=== PATIENT | male | born 1925 | race Caucasian/White ===

== ENCOUNTER 2016-11-01 17:39 | Inpatient (IN) ==
[2016-11-01 18:30] LABS: Mean Cell Volume 89.7 fL (80.0-100.0); Mean Corpuscular HGB Conc 33.9 g/dL (31.0-36.0); Mean Corpuscular Hemoglobin 30.4 pg (26.0-34.0); Platelet Count 212 K/mcL (140-440); RBC 4.67 M/mcL (4.50-5.90); Red Cell Distribution Width 14.7 % (11.5-14.5)
[2016-11-01 18:50] LABS: ALT/SGPT 10 U/l (0-40); Albumin/Globulin Ratio 1.3 (1.0-2.3); Alkaline Phosphatase 47 U/L (39-117); Blood Urea Nitrogen 22 mg/dl (8-23)
[2016-11-01] MEDS ORDERED: ACETAMINOPHEN 650 MG SUPP.RECT PR ONE (19:03)
[2016-11-01 19:27] LABS: Appearance,Urine TURBID; Bacteria,Urine 0 /hpf (0); Bilirubin,Urine NEG (NEG); Color,Urine YELLOW; Glucose,Urine (UA) NEGATIVE (NEG); Leukocyte Esterase,Urine 250 /uL (NEG); Mucus,Urine MOD /hpf (0); Nitrate,Urine POS (NEG); Protein,Urine 100 mg/dL (NEG); Urine Blood >=1.0 mg/dL (<0.03); Urine Hyaline Cast 10 /lpf (0-2); Urine RBC 68 /hpf (0-1); Urine Squamous Epithelial Cell 0 /hpf (0-4); Urine WBC > 182 /hpf (0-4); Urobilinogen,Urine NEG (NEG)
[2016-11-01 19:39] LABS: Band Neutrophils % 5 % (0-10); Lymphocytes % 2 % (15-49); Monocytes % (Manual) 7 % (1-12); Platelet Estimate NORMAL (NORMAL); RBC Morphology NORMAL (NORMAL); Segmented Neutrophils % 86 % (38-78)
[2016-11-01] MEDS ORDERED: CEFEPIME 2 GM in DEXTROSE 5% IN WATER 50 ML IV ONE (19:41)
[2016-11-01] MEDS ORDERED: ACETAMINOPHEN 325 MG TABLET PO ONE (19:49)
--- NOTE | 2016-11-01 20:57 | Emergency Department Note ---
Fever HPI - General Chief Complaint: Fall Stated Complaint: Controlled fall, back pain Time Seen by Provider: 11/01/16 18:03 Source: patient, EMS Mode of arrival: ambulatory - History of Present Illness HPI Narrative: This 89-year-old gentleman was brought by emergency services. Reportedly he had been weak for days and slid to the floor and his significant other who is 93 years old was unable to help him get up. He has a history that includes previous urosepsis certainly years ago. He was seen about a week ago for back pain in this emergency room. - Related Data Home Medications Medication Instructions Recorded Confirmed aspirin 81 mg tablet,delayed 81 mg PO QDAY tab 09/08/15 11/01/16 release PERMANENT DISABLED PARKING PLACARD 1 each .ROUTE DAILY 10/24/16 11/01/16 Previous Rx's Medication Instructions Recorded methenamine mandelate 1 gram tablet 1 g PO QID #60 tab 01/02/16 furosemide 40 mg tablet 40 mg PO QDAY #30 tab 04/14/16 potassium chloride ER 10 mEq 10 meq PO QDAY #30 cap 04/14/16 capsule,extended release Allergies Allergy/AdvReac Type Severity Reaction Status Date / Time finasteride [From Proscar] Allergy Unknown Itching Verified 11/01/16 17:44 pravastatin Allergy Unknown Unknown Verified 11/01/16 17:44 shellfish derived Allergy Unknown Unknown Verified 11/01/16 17:44 tamsulosin [From Flomax] Allergy Unknown Itching Verified 11/01/16 17:44 Review of Systems Review of Systems: No nausea or vomiting. He has had some abdominal pain. No problems with his Cortés catheter. No cough phlegm wheezing or shortness of breath. No chest pains or palpitation. No headaches or passing out. He has been weak enough that his significant other as felt that she is unable to help care for him and that he needs placement. Fever PMH - Past Medical History Medical history: Reports: arthritis, CHF, GERD, hyperlipidemia, valvular heart disease, other (no DM; BPH; chronic cortés catheter.). Denies: coronary artery disease, CVA, hypertension Surgical history ED: Reports: heart valve replacement, herniorrhaphy, knee replacement (x2), other (rotator cuff repair Right; back X2) - Social History smoking status: Never smoker Alcohol use: Reports: None Drug use: Reports: none Physical Exam - General General appearance: other (initially somewhat lethargic, poorly responsive or at least slow; after temp decreased was much more active and alert and interactive and making jokes.) - Head Head exam: atraumatic, normocephalic - Eye Eye exam: Present: normal appearance - Neck Neck exam: Present: trachea midline. Absent: tenderness - Respiratory Respiratory exam: Present: normal lung sounds bilaterally. Absent: respiratory distress, wheezes, stridor - Cardiovascular Cardiovascular exam: Present: regular rate, other (gallop or S3 (LBBB)) - Abdominal Exam Abdominal exam: Present: soft, tenderness (moderately tender, worse RLQ). Absent: rebound, rigidity - Extremities Exam Extremities exam: Present: normal capillary refill - Neurological Exam Neurological exam: Present: alert, oriented X3 - Psychiatric Psychiatric exam: Present: normal affect (after temperature came down.) Course Vital Signs Temperature 102.6 F H 11/01/16 17:40 Pulse Rate 102 H 11/01/16 17:40 Respiratory Rate 16 11/01/16 17:40 Blood Pressure 132/70 11/01/16 17:40 Pulse Oximetry (%) 93 11/01/16 17:40 Temperature 102.6 F H 11/01/16 20:22 Pulse Rate 109 H 11/01/16 18:00 Respiratory Rate 29 H 11/01/16 19:01 Blood Pressure 130/73 11/01/16 19:01 Pulse Oximetry (%) 93 11/01/16 18:00 Fever - Lab Data Result diagrams: 11/01/16 15:47 11/01/16 15:47 Lab Results 11/01/16 11/01/16 11/01/16 Range/Units 15:47 15:47 15:47 WBC 15.0 H (4.5-11.0) K/mcL RBC 4.67 (4.50-5.90) M/mcL Hgb 14.2 (13.5-16.5) g/dL Hct 41.9 (41.0-55.0) % MCV 89.7 (80.0-100.0) fL MCH 30.4 (26.0-34.0) pg MCHC 33.9 (31.0-36.0) g/dL RDW 14.7 H (11.5-14.5) % Plt Count 212 (140-440) K/mcL MPV 7.9 (7.4-10.4) fL Total Counted 100 Seg Neutrophils % 86 H (38-78) % Band Neutrophils % 5 (0-10) % Lymphocytes % 2 L (15-49) % Monocytes % (Manual) 7 (1-12) % Platelet Estimate Normal (NORMAL) RBC Morphology Normal (NORMAL) VBG Lactic Acid 1.7 (0.5-2.2) mmol/L Sodium 137 (133-145) mmol/L Potassium 4.0 (3.3-5.1) mmol/L Chloride 96 (96-108) mmol/L Carbon Dioxide 26 (22-30) mmol/L Anion Gap 15.0 (8-16) BUN 22 (8-23) mg/dl Creatinine 1.0 (0.7-1.2) mg/dl GFR Calculation 66 Glucose 168 H (70-105) mg/dL Calcium 9.1 (8.6-10.4) mg/dl Total Bilirubin 0.8 (0.0-1.0) mg/dL AST 16 (0-37) U/l ALT 10 (0-40) U/l Alkaline Phosphatase 47 (39-117) U/L Total Protein 7.1 (5.9-8.4) gm/dL Albumin 4.0 (3.2-5.2) gm/dL Globulin 3.1 (2.2-3.7) gm/dL Albumin/Globulin Ratio 1.3 (1.0-2.3) Urine Color Urine Appearance Urine pH (5.0-9.0) Ur Specific [place] (1.000-1.035) Urine Protein (NEG) mg/dL Urine Glucose (UA) (NEG) mg/dL Urine Ketones (NEG) mg/dL Urine Occult Blood (<0.03) mg/dL Urine Nitrate (NEG) Urine Bilirubin (NEG) mg/dL Urine Urobilinogen (NEG) mg/dL Ur Leukocyte Esterase (NEG) /uL Urine RBC (0-1) /hpf Urine WBC (0-4) /hpf Ur Squamous Epith Cells (0-4) /hpf Urine Bacteria (0) /hpf Hyaline Casts (0-2) /lpf Urine Mucus (0) /hpf Ur Culture Indicated? 11/01/16 Range/Units 18:51 WBC (4.5-11.0) K/mcL RBC (4.50-5.90) M/mcL Hgb (13.5-16.5) g/dL Hct (41.0-55.0) % MCV (80.0-100.0) fL MCH (26.0-34.0) pg MCHC (31.0-36.0) g/dL RDW (11.5-14.5) % Plt Count (140-440) K/mcL MPV (7.4-10.4) fL Total Counted Seg Neutrophils % (38-78) % Band Neutrophils % (0-10) % Lymphocytes % (15-49) % Monocytes % (Manual) (1-12) % Platelet Estimate (NORMAL) RBC Morphology (NORMAL) VBG Lactic Acid (0.5-2.2) mmol/L Sodium (133-145) mmol/L Potassium (3.3-5.1) mmol/L Chloride (96-108) mmol/L Carbon Dioxide (22-30) mmol/L Anion Gap (8-16) BUN (8-23) mg/dl Creatinine (0.7-1.2) mg/dl GFR Calculation Glucose (70-105) mg/dL Calcium (8.6-10.4) mg/dl Total Bilirubin (0.0-1.0) mg/dL AST (0-37) U/l ALT (0-40) U/l Alkaline Phosphatase (39-117) U/L Total Protein (5.9-8.4) gm/dL Albumin (3.2-5.2) gm/dL Globulin (2.2-3.7) gm/dL Albumin/Globulin Ratio (1.0-2.3) Urine Color Yellow Urine Appearance Turbid Urine pH 5.0 (5.0-9.0) Ur Specific [place] 1.020 (1.000-1.035) Urine Protein 100 A (NEG) mg/dL Urine Glucose (UA) Negative (NEG) mg/dL Urine Ketones Neg (NEG) mg/dL Urine Occult Blood >=1.0 A (<0.03) mg/dL Urine Nitrate Pos A (NEG) Urine Bilirubin Neg (NEG) mg/dL Urine Urobilinogen Neg (NEG) mg/dL Ur Leukocyte Esterase 250 A (NEG) /uL Urine RBC 68 H (0-1) /hpf Urine WBC > 182 H (0-4) /hpf Ur Squamous Epith Cells 0 (0-4) /hpf Urine Bacteria 0 (0) /hpf Hyaline Casts 10 H (0-2) /lpf Urine Mucus Mod (0) /hpf Ur Culture Indicated? Yes Disposition Pt seen by [facility]/PA only: No Clinical Impression: SIRS (systemic inflammatory response syndrome), LBBB (left bundle branch block) UTI (urinary tract infection) Qualifiers: Urinary tract infection type: catheter-associated UTI Indwelling urinary catheter type: indwelling urethral catheter Encounter type: initial encounter Qualified Code(s): T83.511A - Infection and inflammatory reaction due to indwelling urethral catheter, initial encounter; N39.0 - Urinary tract infection , site not specified Summary: Patient was given Tylenol with improvement in his sensorium. With his elevated white count, tachycardia, fever, he qualifies for SIRS criteria and admission. He was given cefepime 2 g in the emergency room. Case was discussed with Dr. Huff regarding his situation, conditions, workup , difficulties at home for long-term care, etc. Patient will be admitted and taken care of by hospitalist. Disposition: Xfer As Inpt ([facility]) Condition: Fair Referrals: Denton Treadwell MD [Primary Care Provider] -
[2016-11-01] MEDS ORDERED: ONDANSETRON 4 MG/2 ML VIAL IV PRN ×2 (21:18→22:21)
[2016-11-01] MEDS ORDERED: ACETAMINOPHEN 325 MG TABLET PO PRN ×2 (21:18→22:21)
[2016-11-01] MEDS ORDERED: 0.9 % SODIUM CHLORIDE 1,000 ML IV SCH ×2 (21:30→22:21)
--- NOTE | 2016-11-01 21:33 | Internal Med History&Physical ---
Medical - H&P: [facility] Patient information: Note initiated : 11/01/16 at 9:28 pm Service Date, if different from initiated Date: [] Patient: Jason Trejo 89 y/o M admitted on for Controlled fall, back pain. Chief Complaint: [Weakness] History of present illness: Mr. Trejo is a 89 year old M with a history of BPH and chronic indwelling Urbina , was brought to the emergency room with weakness. History is obtained speaking to the patient, reviewing old records as well as the emergency department staff. Patient is able to provide some history, but he states he does not remember what happened. He thinks that he may have "poisoned". He said he felt fine, then all of a sudden was in the hospital. Can understand how he could be sick when he is feeling so well. The last thing he remembers is being at home, though he is unsure what day that may have been. According to his 's history for the last few days has been feeling poorly, perhaps up to 1 week. He 's been sliding to the floor and becoming weaker and it's been difficult for her to get him up. He is brought to the ER for further evaluation. Patient denies any fevers or chills. He does endorse feeling weak all over. Had no nausea or vomiting. No chest pain, no cough, no sputum production, no headache, no sore throat. Denies any diarrhea or abdominal pain. He does have some lower back pain which is chronic and unchanged. Apparently the patient did have some complaints of abdominal pain initially, CT of the abdomen and pelvis was obtained without acute findings. Patient denies any abdominal pain when I see him. Patient has a chronic indwelling Urbina catheter due to BPH and urinary obstruction. He also has allergies to finasteride and tamsulosin. He has a history of urinary tract infection with associated sepsis in the past. In the ED, the patient is febrile, tachycardic, with a leukocytosis and bandemia and evidence of UTI with bacteriuria and pyuria. He's been admitted to the hospital for treatment of sepsis associated with CAUTI. Location: Systemic. Severity: Severe. Duration: Few days. Course: Worsening. Context: Chronic Urbina catheter Review of systems: The remainder of a 10 point review of systems is otherwise negative except as noted in history of present illness. 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 Surgical history: History of tissue aortic valve replacement History of skin biopsy History of right total hip replacement History of lumbar fusion Pertinent family history: Denies a history of coronary disease prostate cancer, diabetes Social history: Nonsmoker. Does not drink alcohol. Lives with his . Medical - H&P: Meds Home Medications Medication Instructions Recorded Confirmed Type aspirin 81 mg tablet,delayed 81 mg PO QDAY tab 09/08/15 11/01/16 History release methenamine mandelate 1 gram tablet 1 g PO QID #60 tab 01/02/16 11/01/16 Rx furosemide 40 mg tablet 40 mg PO QDAY #30 tab 04/14/16 11/01/16 Rx potassium chloride ER 10 mEq 10 meq PO QDAY #30 cap 04/14/16 11/01/16 Rx capsule,extended release PERMANENT DISABLED PARKING PLACARD 1 each .ROUTE DAILY 10/24/16 11/01/16 History Allergies Allergy/AdvReac Type Severity Reaction Status Date / Time pravastatin Allergy Mild Dermatitis Verified 11/01/16 21:31 shellfish derived Allergy Unknown Unknown Verified 11/01/16 17:44 finasteride [From Proscar] AdvReac Mild Itching Verified 11/01/16 21:31 tamsulosin [From Flomax] AdvReac Mild Itching Verified 11/01/16 21:31 Medical - H&P: Exam - Constitutional Vitals: Temp Pulse Resp BP Pulse Ox 102.6 F H 99 H 25 H 127/80 93 11/01/16 20:22 11/01/16 21:08 11/01/16 21:08 11/01/16 21:01 11/01/16 21:08 - Other Additional findings: General: Alert, mildly distressed as he is unsure how he came to be in the hospital HEENT: Normocephalic. Pupils are 2 mm and equally round and reactive to light. Sclera are anicteric. No conjunctival injection. Oropharynx is with moist mucous membranes, no lip or gum lesions. Tongue is midline. Neck: Supple, no meningismus. No thyromegaly. Chest: Clear to auscultation bilaterally with no rales or wheezes. No accessory muscle use. Back: No CVA tenderness Cardiovascular: Regular rate and rhythm without murmur gallop or rub. Carotid pulses are 2+ without bruit. There is no lower extremity edema. JVP is normal. Abdomen: Soft, obese, nontender without guarding or rebound. Active bowel sounds. No hepatosplenomegaly, though exam a bit limited by body habitus. : Rubina catheter in place. Turbid urine in the bag. Lymphatic: No cervical or supraclavicular lymphadenopathy appreciated. Skin: Warm, multiple areas of sun damage on the head and neck and forearms. Skin turgor is decreased. Musculoskeletal: No joint erythema or tenderness. Normal range of motion in the upper and lower extremities. Strength 5-/5 in upper and lower extremities. Digits without cyanosis or clubbing. Neuro: Alert, oriented to person, now knows that he is in the hospital. Does not understand the circumstances of arrival. Cranial nerves II through XII grossly intact. Sensation intact to light touch. Medical - H&P: Reslt - Labs CBC & Chem 7: 11/01/16 15:47 11/01/16 15:47 Labs: Short CBC 11/01/16 Range/Units 15:47 WBC 15.0 H (4.5-11.0) K/mcL Hgb 14.2 (13.5-16.5) g/dL Hct 41.9 (41.0-55.0) % Plt Count 212 (140-440) K/mcL BMP 11/01/16 15:47 Sodium 137 Potassium 4.0 Chloride 96 Carbon Dioxide 26 BUN 22 Creatinine 1.0 Glucose 168 H Calcium 9.1 Liver Function 11/01/16 Range/Units 15:47 Total Bilirubin 0.8 (0.0-1.0) mg/dL AST 16 (0-37) U/l ALT 10 (0-40) U/l Alkaline Phosphatase 47 (39-117) U/L Albumin 4.0 (3.2-5.2) gm/dL Urine 11/01/16 Range/Units 18:51 Urine Color Yellow Urine Appearance Turbid Urine pH 5.0 (5.0-9.0) Ur Specific [place] 1.020 (1.000-1.035) Urine Protein 100 A (NEG) mg/dL Urine Glucose (UA) Negative (NEG) mg/dL - EKG Data EKG comments: Bundle branch block, no old EKGs for comparison - Imaging and Cardiology CT scan - abdomen Status: image reviewed by me, pending (formal interpretation) Additional comments: No free air, no mesenteric stranding. Diverticulosis noted. Medical - H&P: A/P - Narrative A/P Narrative: 89-year-old male with a chronic indwelling Urbina catheter due to BPH and chronic urinary retention and prior history of sepsis associated with CAUTI, presents with weakness, altered mental status/encephalopathy, found to have leukocytosis, fever, tachycardia and abnormal urine consistent with sepsis from urinary source. Encephalopathy had generally resolved by the time I saw him after initial fluids and antibiotics. Sepsis. Urinary source. Not severe sepsis, blood pressure is stable. He received cefepime in the ED, I do not find a history of multidrug resistant organisms. Not had recent healthcare contact, except for being seen here about one week ago for back pain. Currently no CVA tenderness or evidence of upper tract infection. Plan: -Admit to the hospital for sepsis -IV fluids -Ceftriaxone for UTI -Follow up blood and urine cultures, narrow antibiotics as able Urinary tract infection, secondary to chronic indwelling catheter. Plan: Change out catheter during hospitalization. Continue antibiotics and follow up cultures Encephalopathy. Patient still mildly confused as to the circumstances of his arrival. They're worried that his and her daughter may get into his car and remove it. No prior history of dementia or thought disorders. Does remain at risk for delirium. Plan: Supportive care, reorientation Gastroesophageal reflux disease. Appears stable. Plan: Continue acid suppression Chronic back pain. Not on standing doses of pain medications. Plan: Treat when necessary Prophylaxis: Subcutaneous Lovenox Diet: Regular CODE STATUS: Patient requests full CODE STATUS. I attempted to have a more in- depth conversation about this decision, but he became focused on again why he was in the hospital and what led him to become ill. At this time for code, will attempt to readdress this as his condition improves. No old hospitalization records or advanced directives available to help guide this currently.
[2016-11-01] MEDS ORDERED: cefTRIAXone 1 GM VIAL ONE (23:12)
[2016-11-02] MEDS ORDERED: ACETAMINOPHEN 325 MG TABLET PO ONE (00:51)
[2016-11-02 06:21] LABS: Mean Cell Volume 90.8 fL (80.0-100.0); Mean Corpuscular HGB Conc 33.4 g/dL (31.0-36.0); Mean Corpuscular Hemoglobin 30.3 pg (26.0-34.0); Platelet Count 191 K/mcL (140-440); RBC 4.07 M/mcL (4.50-5.90); Red Cell Distribution Width 15.1 % (11.5-14.5)
[2016-11-02 06:49] LABS: ALT/SGPT 8 U/l (0-40); Albumin 3.2 gm/dL (3.2-5.2); Albumin/Globulin Ratio 1.2 (1.0-2.3); Alkaline Phosphatase 46 U/L (39-117); Bilirubin,Direct < 0.2 mg/dL (0.0-0.3); Blood Urea Nitrogen 19 mg/dl (8-23); Gamma Glutamyl Transpeptidase 17 U/L (8-61); Magnesium 1.8 mg/dL (1.6-2.5); Uric Acid 5.2 mg/dL (2.5-8.0)
[2016-11-02 07:55] LABS: Band Neutrophils % 15 % (0-10); Eosinophils % (Manual) 2 % (0-7); Lymphocytes % 17 % (15-49); Monocytes % (Manual) 5 % (1-12); Platelet Estimate NORMAL (NORMAL); RBC Morphology NORMAL (NORMAL); Segmented Neutrophils % 61 % (38-78)
[2016-11-02] MEDS ORDERED: cefTRIAXone 1 GM in DEXTROSE 5% IN WATER 50 ML IV SCH ×2 (08:00→14:00)
--- NOTE | 2016-11-02 08:21 | Cat Scan Report ---
CLINICAL INFORMATION: Reason for Exam:fever, elevated wbc count, weakness COMPARISON: None. TECHNIQUE: The abdomen was imaged without oral or IV contrast, scanning from the diaphragm to the symphysis pubis. Sagittal and coronal reformats were created. FINDINGS: There is a focal pleural and parenchymal scar in the lateral basal segment of the left lower lobe. The heart is mildly enlarged and there has been a prior sternotomy with mitral valve replacement. There are several cysts in the liver. The largest is located in the lateral segment of the left lobe and measures 7 cm. The overall size of the liver is normal. The spleen is normal in size. A 1 cm subcapsular cyst is present anteriorly there is also a small calcified granuloma in the spleen. No abnormality is detected in the pancreas or adrenals. A nonobstructing 2 mm calculus is present in the calyx in the lower pole the right kidney. There is a 2 cm cyst medially in the lower pole of left kidney. There is also a 1 mm nonobstructing calyceal stone in the lower portion of the left kidney. No hydronephrosis is present in either kidney. There are densely calcified plaques along the wall of the aorta and iliac arteries. The aorta is normal in caliber. There are numerous diverticula throughout the descending and sigmoid colon. There is no evidence of acute diverticulitis. The urinary bladder is decompressed by Urbina catheter. The prostate is mild to moderately enlarged. No abscess, free fluid or adenopathy are seen within the abdomen or pelvis. There are extensive postoperative changes following prior fusion of the lumbar spine from L2 through L5. Patient also has a right hip prosthesis. IMPRESSION: Diverticulosis of the descending and sigmoid colon. Tiny nonobstructing kidney stones bilaterally Cysts involving the liver, spleen and left kidney Dr. Del Toro was called with results Interpreted and Authenticated by: Julius Zhao 11/02/16
[2016-11-02] MEDS ORDERED: ENOXAPARIN 40 MG/0.4 ML SYRINGE SQ SCH (09:00)
[2016-11-02] MEDS ORDERED: ASPIRIN 81 MG TAB.CHEW CHEWED SCH ×2 (09:00)
[2016-11-02] MEDS ORDERED: FAMOTIDINE 20 MG TABLET PO SCH ×2 (09:00)
[2016-11-02] MEDS ORDERED: DOCUSATE SODIUM 100 MG CAPSULE PO SCH ×2 (09:00)
[2016-11-02] MEDS ORDERED: ENOXAPARIN 30 MG/0.3 ML SYRINGE SQ SCH (09:00)
[2016-11-02] MEDS ORDERED: ONDANSETRON 4 MG/2 ML VIAL IV PRN (10:39)
[2016-11-02] MEDS: 0.9 % SODIUM CHLORIDE 1,000 ML IV SCH ×2 (10:43→12:57)
[2016-11-02] MEDS: cefTRIAXone 1 GM in DEXTROSE 5% IN WATER 50 ML IV SCH (14:33)
--- NOTE | 2016-11-02 17:18 | Internal Med Progress Note ---
Medical - PN: Subj Patient information: Note initiated : 11/02/16 at 5:14 pm Service Date, if different from initiated Date: [] Patient: Jason Trejo 89 y/o M admitted on 11/01/16 for Controlled Fall, Back Pain/Sepsis, UTI. Chief Complaint: [follow-up sepsis] Interval history: 11/02: Feels much better this morning, mentations much clearer. Has intermittent low back pain, as been worse for the last few weeks, was seen in the ED a week ago because of this. Hurts when he moves in certain direction. Prior history of back surgery with fusion. Appetite is good. No fevers or chills. No nausea or vomiting. No dyspnea. - Constitutional Vitals: Vital Signs Temp Pulse Resp BP Pulse Ox 97.2 F 84 20 125/72 95 11/02/16 12:00 11/02/16 07:56 11/02/16 12:00 11/02/16 12:00 11/02/16 12:00 Period Temp Pulse Resp BP Sys/David Pulse Ox Last 24 Hr 97.2 F-99.8 F 75-84 16-20 101-125/59-72 92-95 Intake and Output 11/02/16 11/02/16 11/02/16 05:59 13:59 21:59 Intake Total 50 / 50 240 / 240 Output Total 250 / 250 Balance -200 / -200 240 / 240 Weight 170 lb Intake & Output: Intake & Output 11/02/16 11/02/16 11/02/16 05:59 13:59 21:59 Intake Total 50 / 50 240 / 240 Output Total 250 / 250 Balance -200 / -200 240 / 240 Weight 170 lb Intake: Oral 50 / 50 240 / 240 Output: Urine Catheter Amount 250 / 250 Other: # Bowel Movements 1 1 # of times incontinent of 1 Bowels - Additional findings Additional findings: General: Elderly male, sitting up in the chair earlier today, then laying in bed , no acute distress Chest: Clear to auscultation, unlabored respirations Cardiovascular: regular rate and rhythm, no edema Abdomen: Soft, nontender, active bowel sounds Back: No lumbar vertebral or paraspinous tenderness to palpation Neuro: Alert, oriented, knows he's in the hospital, knows he's here for infection and being "sick". Medical - PN: Obj Da - Labs CBC & Chem 7: 11/02/16 03:40 11/02/16 03:40 Labs: Abnormal Lab Results 11/02/16 11/02/16 03:40 03:40 WBC 16.6 H RBC 4.07 L Hgb 12.3 L Hct 36.9 L RDW 15.1 H Band Neutrophils % 15 H Glucose 112 H Calcium 8.3 L Meds: Medications Acetaminophen (Tylenol) 650 mg PO Q6HP PRN PRN Reason: PAIN/FEVER > 101 Aspirin (Aspirin) 81 mg CHEWED DAILY [facility] Docusate Sodium (Colace) 100 mg PO BID [facility] Enoxaparin Sodium (Lovenox) 40 mg SQ DAILY [facility] Famotidine (Pepcid) 20 mg PO BID [facility] Ceftriaxone Sodium 1 gm/ (Dextrose) 50 mls @ 100 mls/hr IV DAILY [facility] Last Admin: 11/02/16 14:33 Dose: 100 mls/hr Sodium Chloride (Sodium Chloride 0.9%) 1,000 mls @ 75 mls/hr IV .[id number] [facility] Last Admin: 11/02/16 12:57 Dose: 75 mls/hr Ondansetron HCl (Zofran) 4 mg IV Q4HP PRN PRN Reason: Nausea And Vomiting - EKG Data EKG comments: Clarification: admission EKG shows Left BBB ("Left" omitted from H&P). Unknown chronicity. Medical - PN: A/P - Narrative A/P Narrative: 89-year-old male with a chronic indwelling Urbina catheter due to BPH and chronic urinary retention history of sepsis associated with CAUTI, presents with weakness, altered mental status/encephalopathy, found to have leukocytosis , fever, tachycardia and abnormal urine consistent with sepsis from urinary source. Sepsis, not severe, urinary source. Remains hemodynamically stable. Gram- negative rods growing on urine culture. Plan: -Continue IV fluids -Continue ceftriaxone for UTI -Follow up blood and urine cultures -Move to [facility] status Urinary tract infection, secondary to chronic indwelling catheter. Plan: Continue antibiotics and follow-up cultures Encephalopathy. Resolved this morning, patient recalls being confused yesterday. Does not recall much prior to that. Does remain at risk for delirium. Plan: Supportive care, reorientation Back pain. Patient was seen in the ED about a week ago for back pain. He has history of lumbar fusion with hardware. Has had pain ongoing for the last few weeks, that is been affecting mobility, though most recently I suspect there is been a contribution from developing sepsis. Plan: Analgesia, try to minimize opioids, physical therapy evaluation. May need skilled placement for further rehabilitation. Gastroesophageal reflux disease. Appears stable. Plan: Continue acid suppression Prophylaxis: Subcutaneous Lovenox Diet: Regular CODE STATUS: Rediscuss CODE STATUS with the patient as well as his daughter who brings in his advance directive. He would not wish to have resuscitation, this is also consistent with his advanced directive. CODE STATUS is changed to DO NOT RESUSCITATE. Medical - PN: Qual - VTE Deep Vein Thrombosis/Pulmonary Embolism Present on Admission: No
[2016-11-02] MEDS: FAMOTIDINE 20 MG TABLET PO SCH (20:19)
[2016-11-02] MEDS: DOCUSATE SODIUM 100 MG CAPSULE PO SCH (20:19)
[2016-11-03] MEDS: 0.9 % SODIUM CHLORIDE 1,000 ML IV SCH ×2 (02:12→16:58)
[2016-11-03] MEDS: ACETAMINOPHEN 325 MG TABLET PO PRN ×2 (04:41→11:33)
[2016-11-03 06:47] LABS: Mean Cell Volume 90.5 fL (80.0-100.0); Mean Corpuscular HGB Conc 33.6 g/dL (31.0-36.0); Mean Corpuscular Hemoglobin 30.4 pg (26.0-34.0); Platelet Count 187 K/mcL (140-440); RBC 4.11 M/mcL (4.50-5.90); Red Cell Distribution Width 14.9 % (11.5-14.5)
[2016-11-03 07:13] LABS: ALT/SGPT 15 U/l (0-40); Albumin 3.1 gm/dL (3.2-5.2); Alkaline Phosphatase 59 U/L (39-117); Bilirubin,Direct < 0.2 mg/dL (0.0-0.3); Blood Urea Nitrogen 20 mg/dl (8-23); Gamma Glutamyl Transpeptidase 22 U/L (8-61); Magnesium 1.7 mg/dL (1.6-2.5)
[2016-11-03 08:22] LABS: Band Neutrophils % 3 % (0-10); Eosinophils % (Manual) 1 % (0-7); Lymphocytes % 15 % (15-49); Monocytes % (Manual) 4 % (1-12); Platelet Estimate NORMAL (NORMAL); RBC Morphology NORMAL (NORMAL); Segmented Neutrophils % 77 % (38-78)
[2016-11-03] MEDS ORDERED: PNEUMOCOCCAL 23-VAL P-SAC VAC 0.5 ML VIAL IM ONE (09:00)
[2016-11-03] MEDS: cefTRIAXone 1 GM in DEXTROSE 5% IN WATER 50 ML IV SCH (09:00)
[2016-11-03] MEDS: ENOXAPARIN 40 MG/0.4 ML SYRINGE SQ SCH (09:00)
[2016-11-03] MEDS: FAMOTIDINE 20 MG TABLET PO SCH ×2 (09:01→19:26)
[2016-11-03] MEDS: DOCUSATE SODIUM 100 MG CAPSULE PO SCH ×2 (09:01→19:26)
[2016-11-03] MEDS: ASPIRIN 81 MG TAB.CHEW CHEWED SCH (09:01)
--- NOTE | 2016-11-03 16:58 | Internal Med Progress Note ---
Medical - PN: Subj Patient information: Note initiated : 11/03/16 at 4:55 pm Service Date, if different from initiated Date: [] Patient: Jason Trejo 89 y/o M admitted on 11/01/16 for Controlled Fall, Back Pain/Sepsis, UTI. Chief Complaint: [follow-up sepsis and UTI] Interval history: 11/02: Feels much better this morning, mentations much clearer. Has intermittent low back pain, as been worse for the last few weeks, was seen in the ED a week ago because of this. Hurts when he moves in certain direction. Prior history of back surgery with fusion. Appetite is good. No fevers or chills. No nausea or vomiting. No dyspnea. 11/03: Continues to improve, sitting up in chair, not much back pain while upright. More pain when trying to stand and bear weight. Previous imaging without acute findings. Does have history of lumbar disease and fusion. Appetite remains good. Working with physical therapy. Likely will need skilled rehabilitation. Urine culture is growing gram-negative bacillus, identification is pending. Nursing discussed the patient's Urbina care with Dr. Winston's office. Apparently catheter changes are fairly easy. Tempted to change his catheter this afternoon, we are unable to get the catheter Urbina placed to inflate the balloon. I've asked Dr. Winston to come by. - Constitutional Vitals: Vital Signs Temp Pulse Resp BP Pulse Ox 98.1 F 92 H 20 131/65 97 11/03/16 16:00 11/03/16 04:49 11/03/16 16:00 11/03/16 16:00 11/03/16 16:00 Period Temp Pulse Resp BP Sys/David Pulse Ox Last 24 Hr 97.7 F-98.1 F 71-103 20-24 126-154/65-80 94-97 Intake and Output 11/03/16 11/03/16 11/03/16 05:59 13:59 21:59 Intake Total 1394 / 1394 360 / 360 Output Total 675 / 675 350 / 350 Balance 719 / 719 -350 / -350 359 / 359 Weight 164 lb 8 oz Patient Weight 11/04/16 05:59 Weight 164 lb 8 oz Intake & Output: Intake & Output 11/03/16 11/03/16 11/03/16 05:59 13:59 21:59 Intake Total 1394 / 1394 360 / 360 Output Total 675 / 675 350 / 350 Balance 719 / 719 -350 / -350 359 / 359 Weight 164 lb 8 oz Intake: IV 994 / 994 Sodium Chloride 0.9% 1, 994 / 994 000 ml @ 75 mls/hr IV . [id number] [facility] Rx#:[id number] Oral 400 / 400 360 / 360 Output: Urine Catheter Amount 675 / 675 350 / 350 # of times incontinent of urine - Additional findings Additional findings: General: Sitting up in chair in good spirits Chest: Clear Cardiovascular: Regular Abdomen: Soft, nontender : Urbina in place Neurologic alert, oriented to person,in the hospital, has trouble coming up with the name. Knows he is here due to infection. Medical - PN: Obj Da - Labs CBC & Chem 7: 11/03/16 05:13 11/03/16 05:13 Labs: Laboratory Results - last 24 hr 11/03/16 11/03/16 05:13 05:13 WBC 10.1 RBC 4.11 L Hgb 12.5 L Hct 37.2 L MCV 90.5 MCH 30.4 MCHC 33.6 RDW 14.9 H Plt Count 187 MPV 8.0 Total Counted 100 Seg Neutrophils % 77 Band Neutrophils % 3 Lymphocytes % 15 Monocytes % (Manual) 4 Eosinophils % (Manual) 1 Platelet Estimate Normal RBC Morphology Normal Sodium 136 Potassium 3.9 Chloride 102 Carbon Dioxide 23 Anion Gap 11.0 BUN 20 Creatinine 0.7 GFR Calculation 84 Glucose 113 H Uric Acid 5.0 Calcium 8.3 L Phosphorus 2.6 L Magnesium 1.7 Total Bilirubin 0.4 Direct Bilirubin < 0.2 GGT 22 AST 30 ALT 15 Alkaline Phosphatase 59 Lactate Dehydrogenase 246 Total Protein 6.1 Albumin 3.1 L Globulin 3.0 Albumin/Globulin Ratio 1.0 Triglycerides 84 Microbiology 11/01/16 18:25 Blood Blood Culture - Preliminary 11/01/16 15:47 Blood Blood Culture - Preliminary 11/01/16 18:51 Urine - Clean Void Mid-Stream Urine Culture - Preliminary Gram negative bacillus Meds: Medications Acetaminophen (Tylenol) 650 mg PO Q6HP PRN PRN Reason: PAIN/FEVER > 101 Last Admin: 11/03/16 11:33 Dose: 650 mg Aspirin (Aspirin) 81 mg CHEWED DAILY [facility] Last Admin: 11/03/16 09:01 Dose: 81 mg Docusate Sodium (Colace) 100 mg PO BID [facility] Last Admin: 11/03/16 09:01 Dose: 100 mg Enoxaparin Sodium (Lovenox) 40 mg SQ DAILY [facility] Last Admin: 11/03/16 09:00 Dose: 40 mg Famotidine (Pepcid) 20 mg PO BID [facility] Last Admin: 11/03/16 09:01 Dose: 20 mg Ceftriaxone Sodium 1 gm/ (Dextrose) 50 mls @ 100 mls/hr IV DAILY [facility] Last Admin: 11/03/16 09:00 Dose: 100 mls/hr Sodium Chloride (Sodium Chloride 0.9%) 1,000 mls @ 75 mls/hr IV .[id number] [facility] Last Admin: 11/03/16 02:12 Dose: 75 mls/hr Ondansetron HCl (Zofran) 4 mg IV Q4HP PRN PRN Reason: Nausea And Vomiting Medical - PN: A/P - Time Spent With Patient Total time spent is greater than 50% in coordination of care (as documented) at patient's floor/unit and/or counseling patient: 25 - 35 minutes - Narrative A/P Narrative: 89-year-old male with a chronic indwelling Urbina catheter due to BPH and chronic urinary retention history of sepsis associated with CAUTI, presents with weakness, altered mental status/encephalopathy, found to have leukocytosis , fever, tachycardia and abnormal urine consistent with sepsis from urinary source. Sepsis, not severe, urinary source. GNR on culture, ID and sensitivities pending. WBC has normalized. Remains hemodynamically stable. Plan: -Saline lock IV fluids -Continue ceftriaxone for UTI -Follow up blood and urine cultures Urinary tract infection, secondary to chronic indwelling catheter. Unable to replace Urbina after removed. Urology will come by to see and assist. Plan: Continue antibiotics and follow-up cultures Encephalopathy. Resolved. Likely metabolic encephalopathy due to sepsis. Does not recall much prior to that. Does remain at risk for delirium. Plan: Supportive care, reorientation Back pain. Patient was seen in the ED about a week ago for back pain, has history of lumbar fusion with hardware. Pain ongoing for the last few weeks, that is been affecting mobility, though most recently I suspect there is been a contribution from developing sepsis. Plan: Analgesia, minimize opioids, physical therapy evaluation. May need SNF for further therapy. Gastroesophageal reflux disease. Stable. Plan: Continue acid suppression Prophylaxis: Subcutaneous Lovenox Diet: Regular CODE STATUS: DO NOT RESUSCITATE. Medical - PN: Qual - VTE Deep Vein Thrombosis/Pulmonary Embolism Present on Admission: No
[2016-11-04] MEDS: ACETAMINOPHEN 325 MG TABLET PO PRN (00:34)
[2016-11-04] MEDS: 0.9 % SODIUM CHLORIDE 1,000 ML IV SCH (04:45)
[2016-11-04 06:50] LABS: Mean Cell Volume 91.4 fL (80.0-100.0); Mean Corpuscular HGB Conc 33.6 g/dL (31.0-36.0); Mean Corpuscular Hemoglobin 30.7 pg (26.0-34.0); Platelet Count 193 K/mcL (140-440); RBC 4.15 M/mcL (4.50-5.90); Red Cell Distribution Width 14.9 % (11.5-14.5)
--- NOTE | 2016-11-04 07:13 | Consultation ---
DATE OF CONSULTATION: 11/03/2016 Request is by the hospitalist. HISTORY OF PRESENT ILLNESS: The patient is an 89-year-old gentleman who is well known to me. He has developed retention in the past and has failed multiple voiding trials. He has a Urbina catheter in and has noted that he has leakage around the catheter. He is on Urex but was admitted recently for confusion and what felt to be a urinary infection. He does have a chronic indwelling Urbina catheter. The nurses removed the catheter and could not replace this. It sounds like they placed the catheter in and blew up the balloon, but this caused him pain and therefore arguing that the Urbina was not in the bladder itself. I have been asked to evaluate him. PAST MEDICAL HISTORY: Significant for chronic infections, chronic UTIs, chronic retention of urine, coronary artery disease, degenerative disc disease, heart valve disorder, hyperlipidemia, liver cysts, BPH. He also has a history of pneumonia and squamous cell carcinoma of the scalp. PAST SURGICAL HISTORY: Aortic valve replacement, skin biopsy, total hip replacement, lumber fusion. FAMILY HISTORY: Negative for diabetes or prostate cancer. SOCIAL HISTORY: Lives with his . No cancer. CURRENT MEDICATIONS: As per hospital course. REVIEW OF SYSTEMS: Please see the hospitalist's note from 11/01/16. PHYSICAL EXAMINATION: GENERAL: This is a pleasant gentleman in slight distress. VITAL SIGNS: As listed per nurse's notes. NECK: Supple. Trachea is midline. HEART: Regular rate and rhythm. LUNGS: Clear to auscultation. ABDOMEN: Soft, nontender. GENITOURINARY: Urbina catheter is absent. He does have paraphimosis because of unreplaced foreskin. Penis is normal. He does have slight balanitis. Scrotum is normal. No hydrocele, no varicocele. Testicles are down in normal position. He does have antifungal cream placed on the scrotum. LYMPHATIC: No adenopathy. MUSCULOSKELETAL: Normal range of motion. NEUROLOGIC: Alert and oriented times 3. Cranial nerves 2-12 grossly intact. IMPRESSION: Patient who has urinary retention and I was asked to place a catheter. Oral consent was obtained. He was prepped and draped in a standard fashion and a 16-Azeri catheter was placed without difficulty. This drained clear urine. I made sure the foreskin was placed back over the head of his penis and he tolerated the procedure well. PLAN: I would continue with the catheter. He is catheter dependent. He does have infections but would only treat him if he is symptomatic. We will follow up in the office. SUMEET:tatiana Job ID: [id number] Doc ID: [id number] Jason Winston MD
[2016-11-04 07:25] LABS: ALT/SGPT 24 U/l (0-40); Albumin 3.2 gm/dL (3.2-5.2); Albumin/Globulin Ratio 1.1 (1.0-2.3); Alkaline Phosphatase 49 U/L (39-117); Bilirubin,Direct < 0.2 mg/dL (0.0-0.3); Blood Urea Nitrogen 18 mg/dl (8-23); Gamma Glutamyl Transpeptidase 29 U/L (8-61); Magnesium 1.8 mg/dL (1.6-2.5); Uric Acid 5.4 mg/dL (2.5-8.0)
[2016-11-04] MEDS: FAMOTIDINE 20 MG TABLET PO SCH (09:19)
[2016-11-04] MEDS: ASPIRIN 81 MG TAB.CHEW CHEWED SCH (09:19)
[2016-11-04] MEDS: DOCUSATE SODIUM 100 MG CAPSULE PO SCH (09:19)
[2016-11-04] MEDS: ENOXAPARIN 40 MG/0.4 ML SYRINGE SQ SCH (09:20)
[2016-11-04] MEDS: cefTRIAXone 1 GM in DEXTROSE 5% IN WATER 50 ML IV SCH (09:21)
--- NOTE | 2016-11-04 10:11 | Discharge Summary ---
Medical - DS: Prov Patient information: Note initiated : 11/04/16 at 10:10 am Service Date, if different from initiated Date: [] Patient: Jason Trejo 89 y/o M admitted on 11/01/16 for Controlled Fall, Back Pain/Sepsis, UTI. Date of admission: 11/01/16 22:13 Discharge date: 11/04/16 Primary care physician: Denton Treadwell Attending physician on admission: Melanie Huff Consults: 11/02/16 10:19 Consult to Physician [CONS] Routine Comment: Consulting Provider: [employer] [facility] Reason For Exam: Physician to Consult Attending physician on discharge: Melanie Huff Medical - DS: Meds - Discharge Medications Prescriptions: Cephalexin [Keflex] 500 mg PO BID #10 capsule Active and Home Medications: Home Medications aspirin 81 mg tablet,delayed release 81 mg PO QDAY tab 09/08/15 [History Confirmed 11/01/16 Last Taken Unknown] methenamine mandelate 1 gram tablet 1 g PO QID #60 tab 01/02/16 [Rx Confirmed Last Taken Unknown] furosemide 40 mg tablet 40 mg PO QDAY #30 tab 04/14/16 [Rx Confirmed 11/01/16 Last Taken Unknown] potassium chloride ER 10 mEq capsule,extended release 10 meq PO QDAY #30 cap [Rx Confirmed 11/01/16 Last Taken Unknown] PERMANENT DISABLED PARKING PLACARD 1 each .ROUTE DAILY 10/24/16 [History Confirmed 11/01/16 Last Taken Unknown] Medical - DS: Hosp Hospital course: Mr. Trejo is a 89 year old M, brought to the hospital with a history of a few days of feeling poorly, perhaps up to 1 week. He's been sliding to the floor and becoming weaker and it's been difficult for her to get him up. He is brought to the ER for further evaluation. Evaluation the ED showed sepsis from urinary tract infection, it was a catheter associated UTI as he has chronic indwelling Cortés due to BPH and chronic urinary retention. He had some mild encephalopathy presentation as well. Patient was admitted, treated with ceftriaxone. He improved over the next 2 days. Encephalopathy cleared. He has been having lower back pain, ongoing for several weeks, has been having trouble getting around at home (history of prior lumbar fusion). Although part of his difficulty weaknesses at home could've been due to urinary infection as well. He worked with physical therapy in the hospital. He will require a stay at a skilled facility stay to help strengthen prior to being able to return home. His Cortés catheter was changed out why he is in the hospital. Dr. Winston kindly came by to assist. Urine culture was pansensitive Escherichia coli, he' ll be discharged on Keflex. Discharge diagnosis: Sepsis from UTI Secondary discharge diagnosis: CAUTI from chronic Cortés (POA) Musculoskeletal low back pain - Time Spent with Patient Total time spent providing and/or coordinating discharge services: Greater than 30 minutes Medical - DS: Exam - Constitutional Vitals: Vital Signs Temp Pulse Pulse Resp BP BP Pulse Ox 11/04/16 08:00 90 11/04/16 07:16 98.0 F 22 134/84 95 11/04/16 07:15 90 22 95 11/04/16 03:32 97.9 F 101 H 22 126/81 94 11/04/16 00:00 98.0 F 104 H 24 H 149/89 92 11/03/16 20:00 97.6 F 96 H 24 H 105/72 95 11/03/16 16:00 98.1 F 20 131/65 97 11/03/16 12:00 97.9 F 20 137/72 96 Intake and Output 11/03/16 11/04/16 11/04/16 21:59 05:59 13:59 Intake Total 1360 / 1360 1584 / 1584 120 / 120 Output Total 500 / 500 Balance 1359 / 1359 1084 / 1084 120 / 120 Intake: IV 1000 / 1000 884 / 884 Sodium Chloride 0.9% 1, 1000 / 1000 884 / 884 000 ml @ 75 mls/hr IV . [id number] [facility] Rx#:[id number] Oral 360 / 360 700 / 700 120 / 120 Output: Urine Catheter Amount 500 / 500 # of times incontinent of urine Other: Meal Breakfast Percent of Meal Consumed 75% # Bowel Movements 1 Weight 166 lb - Other Additional findings: General: Sitting up in chair, in good spirits Chest: Clear to auscultation Cardiovascular: Regular, no edema Abdomen: Soft, nontender : Cortés in place Back: No vertebral or paraspinous tenderness to palpation in the lumbar region Neuro: Alert, oriented to person place and situation. Generally weak but nonfocal. Medical - DS: Data Procedures and tests throughout hospitalization: CT of Abdomen and Pelvis IMPRESSION: Diverticulosis of the descending and sigmoid colon. Tiny nonobstructing kidney stones bilaterally Cysts involving the liver, spleen and left kidney Labs on day of discharge: Labs from last 24 hours 11/04/16 11/04/16 04:59 04:59 WBC 8.1 RBC 4.15 L Hgb 12.7 L Hct 37.9 L MCV 91.4 MCH 30.7 MCHC 33.6 RDW 14.9 H Plt Count 193 MPV 8.2 Total Counted Pending Band Neutrophils % Not Reportable Platelet Estimate Pending RBC Morphology Pending Sodium 137 Potassium 4.2 Chloride 103 Carbon Dioxide 23 Anion Gap 11.0 BUN 18 Creatinine 0.8 GFR Calculation 79 Glucose 105 Uric Acid 5.4 Calcium 8.6 Phosphorus 2.6 L Magnesium 1.8 Total Bilirubin 0.4 Direct Bilirubin < 0.2 GGT 29 AST 34 ALT 24 Alkaline Phosphatase 49 Lactate Dehydrogenase 214 Total Protein 6.1 Albumin 3.2 Globulin 2.9 Albumin/Globulin Ratio 1.1 Triglycerides 94 Microbiology 11/01/16 18:51 Urine Culture - Final Urine - Clean Void Mid-Stream Escherichia coli 11/01/16 18:25 Blood Culture - Preliminary Blood 11/01/16 15:47 Blood Culture - Preliminary Blood Medical - DS: A/P - Patient/Caregiver Discharge Instructions Activity: as per physical therapy, increase activity as tolerated Diet: Regular Diet Additional Instructions: Patient has chronic indwelling cortés catheter with catheter changed on 11/04/16 and will be due to be changed on 12/05/16. This can be done at [facility]. If patient discharges from [facility] then please set up appointment at Dr Winston's office for cath change. Patient has chronic outlet obstruction. Follow up with Dr. Treadwell in 7-10 days Other Amb Orders: OT Discharge Order Location: Determined By Patient Physical Therapy at Discharge - General Location: Determined By Patient - Follow up Plan Follow up with: Denton Treadwell MD [Primary Care Provider] - Disposition: Xfer SNF Prognosis: Fair Rehab Potential: Fair I certify that the patient requires SNF services: Yes Overall status at discharge: patient is not back to baseline Medical - DS: Qual - VTE Deep Vein Thrombosis/Pulmonary Embolism Present on Admission: No
[2016-11-04] MEDS ORDERED: CEPHALEXIN 500 MG CAPSULE PO SCH (10:16)
[2016-11-04] MEDS ORDERED: CEPHALEXIN 250 MG CAPSULE PO SCH (11:00)
[2016-11-04 11:24] LABS: Band Neutrophils % 3 % (0-10); Eosinophils % (Manual) 1 % (0-7); Lymphocytes % 28 % (15-49); Monocytes % (Manual) 4 % (1-12); Platelet Estimate NORMAL (NORMAL); RBC Morphology NORMAL (NORMAL); Segmented Neutrophils % 64 % (38-78); Toxic Granulation FEW (NONE SEEN)
== END 2016-11-04 12:15 | DRG 698 ==
LOC: ED 17:39 → ICU 22:13 → MEDSUR 11-02 14:15
PROVIDERS: ADMIT Internal Medicine; ATTEND Internal Medicine